=== PATIENT | female | born 1965 | race Caucasian/White ===

== ENCOUNTER 2017-07-22 19:17 | Emergency (ER) | payer OTHER ==
--- NOTE | 2017-07-22 19:40 | ED.PDOC ---
History of Present Illness - General Chief Complaint: Abdominal Pain Stated Complaint: Abd pain, back pain, vomiting Time Seen by Provider: 07/22/17 19:39 Source: patient Exam Limitations: no limitations - History of Present Illness Initial Comments: Aruna Paulino 51 y/o female stated she started having constant ,sharp burning pain since this am tired to eat but felt nauseated and got worse did not eat lunch today since no appetite no diarrhea,stated that she had sme symptoms in the past but went away.Had vomited once on the way here. Timing/Duration: other - early thi am Improving Factors: nothing Worsening Factors: nothing Associated Symptoms: loss of appetite Allergies/Adverse Reactions: Allergies NO KNOWN ALLERGY Allergy (Unverified 10/28/14 07:15) Home Medications: Ambulatory Orders Levothyroxine Sodium [Levoxyl] 137 mcg PO DAILY 10/25/14 Review of Systems - Review of Systems Constitutional: States: no symptoms reported EENTM: States: no symptoms reported Respiratory: States: no symptoms reported Cardiology: States: no symptoms reported Gastrointestinal/Abdominal: States: see HPI Musculoskeletal: States: no symptoms reported Skin: States: no symptoms reported Past Medical History (General) - Patient Medical History Hx Seizures: No Hx Stroke: No Hx Dementia: No Hx Asthma: No Hx of COPD: No Hx Cardiac Disorders: No Hx Congestive Heart Failure: No Hx Pacemaker: No Hx Hypertension: No Hx Thyroid Disease: Yes - hypothyroid Hx Diabetes: No Hx Gastroesophageal Reflux: No Hx Renal Disease: No Hx Cancer: No Hx of HIV: No Hx Hepatitis C: No Hx MRSA: Yes - leg MRSA Source:: Wound Surgical History: no surgical history - Vaccination History Hx Tetanus, Diphtheria Vaccination: Yes Hx Influenza Vaccination: No Hx Pneumococcal Vaccination: No Immunizations Up to Date: Yes - Social History Hx Tobacco Use: No Hx Alcohol Use: No - Activities of Daily Living Patient Lives Alone: No - family - Female History Patient is a Female of Child Bearing Age (10 -59 yrs old): Yes Hx Last Menstrual Period: 01/03/17 - perimenopausal Patient : No Family Medical History - Family History Mother Living Status: Still Living Hx Family Hypertension: Yes Father Living Status: Cause of : Leukemia Physical Exam - Physical Exam General Appearance: Alert, No apparent distress Eye Exam: bilateral normal Ears, Nose, Throat: hearing grossly normal, normal ENT inspection, normal pharynx Neck: non-tender, full range of motion, supple Respiratory: chest non-tender, lungs clear Cardiovascular/Chest: normal peripheral pulses, regular rate, rhythm, no murmur Peripheral Pulses: radial,right: 2+, radial,left: 2+ Gastrointestinal/Abdominal: soft, no organomegaly, no pulsatile mass, tenderness - epigastrium and RUQ / extending to rlq + rebound Progress - Progress Progress: 07/22/17 20:04 Vital Signs - 8 hr 07/22/17 19:32 Temperature 99.3 F Pulse Rate [ 100 H monitor] Respiratory 18 Rate Blood Pressure 125/86 [Right Arm] O2 Sat by Pulse 100 Oximetry - Results/Orders Results/Orders: Laboratory Tests 07/22/17 07/22/17 07/22/17 19:25 19:53 19:53 WBC 12.3 H RBC 4.72 Hgb 14.6 Hct 42.3 MCV 89.8 MCH 30.9 MCHC 34.5 RDW 12.9 Plt Count 312 MPV 7.7 Absolute Neuts (auto) 10.90 H Absolute Lymphs (auto) 0.60 L Absolute Monos (auto) 0.60 Absolute Eos (auto) 0.00 Absolute Basos (auto) 0.10 Neutrophils % 89.2 H Lymphocytes % 4.7 L Monocytes % 5.3 Eosinophils % 0.3 L Basophils % 0.5 Sodium 136 Potassium 3.8 Chloride 103 Carbon Dioxide 19 L Anion Gap 17.8 BUN 10 Creatinine 0.64 BUN/Creatinine Ratio 15.6 Random Glucose 98 Serum Osmolality 271.0 L Calcium 9.3 Total Bilirubin 1.1 H AST 38 ALT 61 H Alkaline Phosphatase 92 Troponin I Serum Total Protein 8.1 Albumin 4.7 Globulin 3.4 Albumin/Globulin Ratio 1.4 Lipase 23 Urine Color Yellow Urine Appearance Sl cloudy Urine pH 5.5 Ur Specific [place] 1.025 Urine Protein Negative Urine Glucose (UA) Negative Urine Ketones >=160 Urine Blood Large H Urine Nitrite Negative Urine Bilirubin Small H Urine Urobilinogen 0.2 Ur Leukocyte Esterase Small H Urine RBC 10-20 H Urine WBC 20-30 H Ur Epithelial Cells 5-10 Urine Bacteria Rare 07/22/17 19:53 WBC RBC Hgb Hct MCV MCH MCHC RDW Plt Count MPV Absolute Neuts (auto) Absolute Lymphs (auto) Absolute Monos (auto) Absolute Eos (auto) Absolute Basos (auto) Neutrophils % Lymphocytes % Monocytes % Eosinophils % Basophils % Sodium Potassium Chloride Carbon Dioxide Anion Gap BUN Creatinine BUN/Creatinine Ratio Random Glucose Serum Osmolality Calcium Total Bilirubin AST ALT Alkaline Phosphatase Troponin I < 0.02 Serum Total Protein Albumin Globulin Albumin/Globulin Ratio Lipase Urine Color Urine Appearance Urine pH Ur Specific [place] Urine Protein Urine Glucose (UA) Urine Ketones Urine Blood Urine Nitrite Urine Bilirubin Urine Urobilinogen Ur Leukocyte Esterase Urine RBC Urine WBC Ur Epithelial Cells Urine Bacteria - EKG/XRAY/CT EKG: Sinus Comments: Heart rate-84 CT Ordered: Yes - abd/p- acute appendicitis w/appendicolith Departure - Departure Clinical Impression: Small bowel obstruction Abdominal pain Qualifiers: Abdominal location: right lower quadrant Qualified Code(s): R10.31 - Right lower quadrant pain Appendicitis, acute Qualifiers: Acute appendicitis type: unspecified acute appendicitis type Qualified Code(s) : K35.80 - Unspecified acute appendicitis Time of Disposition: 22:33 Disposition: Transfer to Hospital Departure Forms: Patient Portal Self Enrollment Instructions: DI for Abdominal Pain-Adult Referrals: Adis Harrison III, MD [Primary Care Provider] - 1-2 Weeks Home Medications: Ambulatory Orders Levothyroxine Sodium [Levoxyl] 137 mcg PO DAILY 10/25/14 Transfer to Outside Facility - Transfer Information Accepting Facility: [facility]
[2017-07-22] MEDS ORDERED: ONDANSETRON INJ 4 MG/2 ML VIAL IV ONE (19:42)
[2017-07-22] MEDS ORDERED: SODIUM CHLORIDE 0.9% 1000ML 1,000 ML IVS ONE (19:42)
[2017-07-22] MEDS ORDERED: PANTOPRAZOLE INJECTION 80 MG in SODIUM CHLORIDE 0.9% 100ML 80 ML IVPB ONE (19:56)
[2017-07-22] MEDS ORDERED: MORPHINE SULFATE INJ 10 MG/ML VIAL IV ONE ×2 (19:56→21:31)
[2017-07-22] MEDS ORDERED: PANTOPRAZOLE SODIUM IV 40 MG VIAL ONE ×2 (20:13→20:14)
[2017-07-22] MEDS ORDERED: SODIUM CHLORIDE 0.9% 100ML 100 ML IVPB ONE ×4 (20:13→22:42)
--- NOTE | 2017-07-22 20:20 | RAD ---
EXAM DESCRIPTION: Chest,2 Views CLINICAL HISTORY: p[ain COMPARISON: None FINDINGS: Cardiac silhouette is within normal limits. Aorta is tortuous. There is no focal parenchymal or pleural disease. There is no acute osseous process visualized. IMPRESSION: No evidence of acute cardiopulmonary disease. Electronically signed by: Booker Perera MD 07/22/2017 8:19 PM CDT
--- NOTE | 2017-07-22 22:12 | CT ---
EXAM DESCRIPTION: Abdoment/Pelvis w/o Contrast CLINICAL HISTORY: pain COMPARISON: None Available TECHNIQUE: Contiguous axial images of the abdomen and pelvis were obtained followed by reconstruction images. This exam was performed according to our departmental dose-optimization program, which includes automated exposure control, adjustment of the mA and/or kV according to patient size and/or use of iterative reconstruction technique. FINDINGS: There is an appendicolith. There is dilatation of the appendix distal to this point with stranding of the adjacent fat compatible with acute appendicitis. Appendix measures approximately 1.6 cm in transverse diameter. Linear opacities within the lungs may represent scar versus subsegmental atelectasis. There are diverticuli without CT evidence of acute diverticulitis. The liver, spleen, pancreas and kidneys are within normal limits. There is no hydronephrosis or renal stones. The gallbladder is unremarkable by CT criteria. Adrenal glands are within normal limits. Aorta is of normal caliber and tapering. There is no free fluid in the abdomen or pelvis. There is no bowel obstruction. There are degenerative changes of lumbar spine. IMPRESSION: Findings compatible with acute appendicitis. Electronically signed by: Booker Perera MD 07/22/2017 10:11 PM CDT
[2017-07-22] MEDS ORDERED: PIPERACILLIN/TAZOBACTAM 4.5 GM in SODIUM CHLORIDE 0.9% 100ML 100 ML IVPB ONE (22:36)
[2017-07-22] MEDS ORDERED: PIPERACILLIN/TAZOBACTAM 2.25 GM VIAL IVPB ONE ×2 (22:40→22:42)
[2017-07-22 23:25] VITALS: BP 119/63; TEMP 98.9; O2SAT 97
== END 2017-07-22 23:25 | disposition short-term general hospital (02) ==
LOC: ER 19:17
DX: K35.80 Unspecified acute appendicitis (principal); E03.9 Hypothyroidism, unspecified
CPT/HCPCS: 36415; 71020; 74176; 80053; 81001; 83690; 84484; 85025; 87086; 93005; J2270; J2405; J2543; J7030; J7050

== ENCOUNTER 2018-01-23 05:40 | Day surgery (SDC) | payer OTHER ==
[2018-01-23] MEDS ORDERED: LACTATED RINGERS 1,000 ML ONE (06:41)
[2018-01-23] MEDS ORDERED: MIDAZOLAM INJ 2 MG/2 ML VIAL ONE (07:20)
[2018-01-23] MEDS ORDERED: fentaNYL CITRATE INJ 50 MCG/ML AMP ONE (07:50)
--- NOTE | 2018-01-23 09:00 | SSS ---
CHIEF COMPLAINT: History of colon polyps. HISTORY OF PRESENT ILLNESS: Ms. Paulino is a 52 year-old female who presents for repeat colonoscopy. She had a colonoscopy by disposition in October of 2014 during which three small tubular adenomas were removed, one from the rectum , one from the splenic flexure and the other from the hepatic flexure. She also had moderate left-sided diverticulosis. Risks and benefits were discussed and she is agreeable to proceeding. She has had no new symptoms referable to her bowels, specifically no abdominal pain, no changes in her bowel habits or blood in her stool. She also has a family history of colon cancer. PAST MEDICAL HISTORY: 1. History of colon polyps as above. 2. Diverticulosis. 3. Hypothyroidism diagnosed at age 31. 4. Family history of colon cancer. PAST OB HISTORY: She is 1, para 1 with no miscarriages or abortions. Her one delivered vaginally without complications. PAST SURGICAL HISTORY: 1. Laparoscopic appendectomy by Dr. Rojas Medina on 07/23/17. 2. Colonoscopy as described above. CURRENT MEDICATIONS: 1 Levothyroxine 0.15 mg daily. ALLERGIES: NONE. FAMILY HISTORY: Father at age 49 from leukemia. This is what we surmised. The daughter states that "his white cells were high." Mother has history of hypertension, osteoarthritis and sciatica with chronic low back pain. She has a sister, Allison, who was diagnosed with colon cancer in 2011 at age 47 and underwent chemotherapy. She has had a hysterectomy as well. She has one sone, Eusebio, who is healthy. Her maternal grandmother had leukemia and type 2 diabetes. She has a maternal grate aunt and an uncle with diabetes. 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 She is . She has one child. She has never smoked. She drinks alcohol on a social basis. REVIEW OF SYSTEMS: Negative except as per history of present illness. PHYSICAL EXAMINATION: VITAL SIGNS: Height 5' 6", weight 228 pounds. Blood pressure 136/80, pulse 72. GENERAL: She is awake and alert and in no acute distress. d HEENT: Unremarkable. NECK: Supple. CHEST: Lungs clear. CARDIOVASCULAR: Regular rate and rhythm without appreciable murmurs. ABDOMEN: Soft, non-tender. EXTREMITIES: Without edema. RECTAL: Exam deferred until time of colonoscopy. ASSESSMENT: 1. Family history of colon cancer/ 2. Personal history of colon polyps. PLAN: Colonoscopy on 01/23/18. #[id number] MICHEAL
--- NOTE | 2018-01-23 09:10 | OP ---
DATE OF PROCEDURE: 01/23/18 PREOPERATIVE DIAGNOSIS: 1. Family history of colon cancer in her sister. 2. History of colonic polyps in Aruna. POSTOPERATIVE DIAGNOSIS: 1. Left sided diverticula. 2. 0.25 x 0.25 cecal polyp status post biopsy x2 to obliteration. 3. 1.5 x 1.5 x 0.5 sessile spreading polyp, removed piecemeal with hemostasis noted at the terminal ileum/cecal junction. 4. 0.25 x 0.25 descending colon polyp, biopsied x2 to obliteration. 5. 0.5 x 0.25 rectal polyp biopsied x3 to obliteration. PROCEDURE: 1. Colonoscopy. SURGEON: Adis Harrison MD. ESTIMATED BLOOD LOSS: 1 mL. COMPLICATIONS: No immediate complications. ANESTHESIA: Fentanyl 2 mL, Versed 2 mg, Propofol 600 mg via Severino Rogers CRNA. TECHNIQUE: After informed consent was obtained from the patient, the patient was taken to the Endoscopy Suite and placed in the left lateral decubitus position. Vital signs were monitored throughout the procedure. Supplemental oxygen was administered throughout the procedure. After adequate conscious sedation was obtained, digital rectal examination was performed, which was unremarkable. The colonoscope was then advanced into the patient's rectum and up through the sigmoid, descending, transverse and ascending colon to the level of the cecum. Some looping was noted by the time we reached the hepatic flexure and manual pressure had to be done several times to finally reach the cecum. The terminal ileum was entered briefly. A small polyp was removed with two bites in the cecum. A larger sessile polyp was noted right at the terminal ileum/cecal junction. This was assumed to be a polyp. At least 10+ biopsies to try to removal all this. We will see what the pathology shows. It was difficult as it was right on a fold. The colonoscope was then slowly withdrawn. Photographs of the cecum were taken including the appendiceal orifice. As the scope was withdrawn, overall the bowel prep was very good. There were a few small solid pieces of stool in the rectum, but they were view in number. Overall, the bowel prep was good. No other abnormalities were noted other than the polyp in the descending colon and rectal region and left sided diverticulosis. On retroflexion, grade 1 internal hemorrhoids were noted. The colonoscope was then unretroflexed and air was suctioned out of the patient's rectum. The colonoscope was removed from the patient. The patient tolerated the procedure well and was taken back to the recovery area in good condition. PLAN: We will followup on the biopsies. If the large, presumed sessile polyp in the cecum that had to be removed piecemeal comes back as benign tissue, she will need a repeat colonoscopy in 3 years. Otherwise, if it is polypoid tissue , then we will give consideration for GI referral for repeat colonoscopy in 1-1/ 2 to 2 years. #[id number] [facility]
[2018-01-23 09:47] VITALS: BP 143/86; TEMP 97.6; O2SAT 100
[2018-01-23] MEDS ORDERED: PROPOFOL 200 MG/20 ML VIAL IV ONE (10:00)
[2018-01-23] MEDS ORDERED: LIDOCAINE 1% 10 ML VIAL INJ ONE (10:00)
== END 2018-01-23 09:35 | disposition home or self-care (01) ==
LOC: AMB 05:40
PROVIDERS: ATTEND Family Medicine
DX: Z12.11 Encounter for screening for malignant neoplasm of colon (principal); D12.7 Benign neoplasm of rectosigmoid junction; D12.0 Benign neoplasm of cecum; D12.4 Benign neoplasm of descending colon; K57.30 Diverticulosis of large intestine without perforation or abscess without bleeding; K64.0 First degree hemorrhoids; E03.9 Hypothyroidism, unspecified; Z86.010 Personal history of colon polyps; Z80.0 Family history of malignant neoplasm of digestive organs; Z79.899 Other long term (current) drug therapy
CPT/HCPCS: 00812; 45380; J2250; J3010; J3490; J7120

== ENCOUNTER → 2018-02-06 | Outpatient (CLI) | payer OTHER | LOC: GMAL 11:51 | PROVIDERS: ATTEND Family Medicine | DX: E03.9 Hypothyroidism, unspecified (principal) ==

== ENCOUNTER → 2018-05-04 | Outpatient (CLI) | payer OTHER | LOC: GMAL 10:44 | PROVIDERS: ATTEND Family Medicine | DX: E03.9 Hypothyroidism, unspecified (principal) ==

== ENCOUNTER → 2018-07-04 | Outpatient (CLI) | payer OTHER | LOC: GMAL 11:57 | PROVIDERS: ATTEND Family Medicine | DX: E03.9 Hypothyroidism, unspecified (principal) ==

== ENCOUNTER → 2018-11-16 | Outpatient (CLI) | payer OTHER | LOC: GMAL 16:03 | PROVIDERS: ATTEND Family Medicine | DX: D51.3 Other dietary vitamin B12 deficiency anemia (principal); E55.9 Vitamin D deficiency, unspecified ==

== ENCOUNTER → 2019-10-26 | Outpatient (CLI) | payer OTHER | LOC: GMAF 20:16 | PROVIDERS: ATTEND Nurse Practitioner Family | DX: N39.0 Urinary tract infection, site not specified (principal) ==

== ENCOUNTER → 2019-11-20 | Outpatient (CLI) | payer OTHER ==
--- NOTE | 2019-11-21 18:40 | MAM ---
EXAM DESCRIPTION: 3D Screening BILATERAL : Digital Mammography. CLINICAL HISTORY: 54 years Female ANNUAL SCREENING . No complaints. No personal history of breast cancer. Remote family history of breast cancer and ovarian cancer. Menarche age 10. Childbirth age 23. Menopause age 51 no HRT. Lifetime risk of developing breast cancer (Tyrer-Cuzick model)(%): 8.9. COMPARISON: 2-D digital screening bilateral mammography 20 October 2015.. No prior reports available. TECHNIQUE: Bilateral CC and MLO projection full-field images, digital tomosynthesis mammographic technique. Bilateral digital 2-D full-field MLO images. CAD available for 2-D images. FINDINGS: The breast parenchymal density pattern is: Scattered areas of fibroglandular density. No skin thickening or nipple retraction. Bilateral solitary microcalcifications. Skin mole marker inferior posterior left breast. No new focal, stellate mass or density, focal asymmetry , and no suspicious microcalcifications bilaterally. Stable mammograms compared to prior study. Taking into account, differences in mammographic technique. IMPRESSION: Benign exam. BIRAD CATEGORY: 2 BENIGN FINDINGS. RECOMMENDATIONS: FOLLOW UP: Routine digital bilateral mammographic screening, one year interval from November 2019. Written communication explaining the IMPRESSION and follow-up, will be mailed to the patient and referring health care provider. According to the [employer], yearly mammograms are recommended starting at age 40 and continuing as long as a woman is in good health. Any breast change noted on a breast self-exam should be reported promptly to the patient's healthcare provider. Breast MRI is recommended for women with an approximately 20-25% or greater lifetime risk of breast cancer, including women with a strong family history of breast or ovarian cancer and women who have been treated for Hodgkin's disease. A negative mammographic report should not delay tissue diagnosis in patients with significant clinical history or physical findings. Extremely dense breast tissue limits the sensitivity of digital mammography. Electronically signed by: Osmar Sinclair MD 11/21/2019 6:39 PM [employer]
== END ==
LOC: MAMMO 13:00
PROVIDERS: ATTEND Family Medicine
DX: Z12.31 Encounter for screening mammogram for malignant neoplasm of breast (principal)

== ENCOUNTER → 2020-08-25 | Outpatient (CLI) | payer OTHER | LOC: GMAL 16:40 | PROVIDERS: ATTEND Family Medicine | DX: N30.00 Acute cystitis without hematuria (principal) ==